=== PATIENT | male | born 1975 | race Caucasian/White ===

== ENCOUNTER 2016-05-29 11:51 | Emergency (ER) | payer OTHER, MEDICARE ==
[~2016-05-29] VITALS: Ht 172.7 cm; Wt 122.0 kg
[~2016-05-29 11:51] MED LIST: ATEN-104 PO; BUPR-197 PO; CLIN1CAP5 PO; HYDR-2768 PO; HYDR-3533 PO; LAMI200T PO; LITH300 PO; PROT40TA PO
[2016-05-29 12:01] VITALS: BP 140/92; PULSE 81; RESP 18; TEMP 97.9; O2SAT 100
--- NOTE | 2016-05-29 12:10 | PD ---
HPI Chief Complaint: Chest Pain Time Seen by Provider: 12:05 Travel History International Travel<30 days: No Contact w/Intl Traveler<30days: No History of Present Illness HPI This patient complains of a sharp stabbing pleuritic chest pain in the right lower chest. Duration is 90 minutes. Severity is moderate. Clearly reproducible with a deep breath. No cough or fever. No alleviating factors. He is not a smoker. 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) Endocrine: No GERD: Yes Genitourinary: No Hypertension: Yes Immune Disorder: No Musculoskeletal: No Neurologic: No Psychiatric: Yes (BIPOLAR depressive) Reproductive: No Respiratory: No Immunizations Current: Yes Shingles: Yes Past Surgical History Abdominal Surgery: No AICD: No Arteriovenous Shunt: No Cardiac Surgery: No Ear Surgery: Yes (MULTIPLE EAR SURGERIES CHILD) Endocrine Surgery: No Eye Surgery: No Genitourinary Surgery: No Gynecologic Surgery: No Insulin Pump: No Joint Replacement: No Neurologic Surgery: No Oral Surgery: Yes (TEETH EXTRACTIONS) Pacemaker: No Thoracic Surgery: No Tonsillectomy: Yes Tympanostomy Tube: Yes (CHILDHOOD) Other Surgery: Yes (VASECTOMY 2009) Social History Alcohol Use: Yes (RARE) Tobacco Use: Yes (chew) Substance Use: No Allergies-Medications (Allergen,Severity, Reaction): Coded Allergies: Sulfa (Verified Allergy, Mild, 05/29/16) Reported Meds & Prescriptions Reported Meds & Active Scripts Active Reported Latuda (Lurasidone) 20 Mg Tab 20 Mg PO DAILY Bupropion HCl 100 Mg Tab 100 Mg PO HS Ranitidine (Ranitidine HCl) 150 Mg Tab 150 Mg PO HS Hydrochlorothiazide 25 Mg Tab 25 Mg PO DAILY Atenolol 100 Mg Tab 100 Mg PO DAILY [place] Carbonate ER ([place] Carbonate) 450 Mg Tab 1,350 Mg PO DAILY Metformin (Metformin HCl) 850 Mg Tab 850 Mg PO DAILY With a meal Review of Systems General / Constitutional: No: Fever Eyes: No: Visual changes HENT: No: Headaches Cardiovascular: Positive: Chest Pain or Discomfort Respiratory: No: Shortness of Breath Gastrointestinal: No: Abdominal Pain Genitourinary: No: Dysuria Musculoskeletal: No: Pain Skin: No Rash Neurologic: No: Weakness Psychiatric: No: Depression Endocrine: No: Polydipsia Hematologic/Lymphatic: No: Easy Bruising Physical Exam Narrative GENERAL: Well-nourished, well-developed patient with pleuritic pain . SKIN: Warm and dry. HEAD: Atraumatic. Normocephalic. EYES: Pupils equal and round. No scleral icterus. No injection or drainage. ENT: No nasal bleeding or discharge. Mucous membranes pink and moist. NECK: Trachea midline. No JVD. CARDIOVASCULAR: Regular rate and rhythm. No murmur appreciated. RESPIRATORY: No accessory muscle use. Clear to auscultation. Breath sounds equal bilaterally. GASTROINTESTINAL: Abdomen soft, non-tender, nondistended. Hepatic and splenic margins not palpable. MUSCULOSKELETAL: No obvious deformities. No clubbing. No cyanosis. No edema. NEUROLOGICAL: Awake and alert. No obvious cranial nerve deficits. Motor grossly within normal limits. Normal speech. PSYCHIATRIC: Appropriate mood and affect; insight and judgment normal. Data Data Last Documented VS Vital Signs Date Time Temp Pulse Resp B/P Pulse Ox O2 Delivery O2 Flow Rate FiO2 05/29/16 14:00 78 18 117/77 97 Room Air 05/29/16 12:01 97.9 Orders Chest, Single Ap (05/29/16 ) Iv Access Insert/Monitor (05/29/16 12:05) Complete Blood Count With Diff (05/29/16 12:05) Basic Metabolic Panel (Bmp) (05/29/16 12:05) Prothrombin Time / Inr (Pt) (05/29/16 12:05) Act Partial Throm Time (Ptt) (05/29/16 12:05) D-Dimer (05/29/16 12:05) Electrocardiogram (05/29/16 ) Labs Laboratory Tests Test 05/29/16 12:20 White Blood Count 14.3 TH/MM3 Red Blood Count 5.14 MIL/MM3 Hemoglobin 13.9 GM/DL Hematocrit 41.2 % Mean Corpuscular Volume 80.3 FL Mean Corpuscular Hemoglobin 27.1 PG Mean Corpuscular Hemoglobin 33.8 % Concent Red Cell Distribution Width 13.3 % Platelet Count 306 TH/MM3 Mean Platelet Volume 7.8 FL Neutrophils (%) (Auto) 74.6 % Lymphocytes (%) (Auto) 17.4 % Monocytes (%) (Auto) 4.7 % Eosinophils (%) (Auto) 2.9 % Basophils (%) (Auto) 0.4 % Neutrophils # (Auto) 10.6 TH/MM3 Lymphocytes # (Auto) 2.5 TH/MM3 Monocytes # (Auto) 0.7 TH/MM3 Eosinophils # (Auto) 0.4 TH/MM3 Basophils # (Auto) 0.1 TH/MM3 CBC Comment DIFF FINAL Differential Comment Prothrombin Time 11.0 SEC Prothromb Time International 1.0 RATIO Ratio Activated Partial 28.3 SEC Thromboplast Time D-Dimer Quantitative (PE/DVT) 0.20 MG/L FEU Sodium Level 141 MEQ/L Potassium Level 3.7 MEQ/L Chloride Level 103 MEQ/L Carbon Dioxide Level 29.6 MEQ/L Anion Gap 8 MEQ/L Blood Urea Nitrogen 8 MG/DL Creatinine 0.78 MG/DL Estimat Glomerular Filtration 111 ML/MIN Rate Random Glucose 110 MG/DL Calcium Level 8.8 MG/DL MDM Medical Decision Making Medical Screen Exam Complete: Yes Emergency Medical Condition: Yes Medical Record Reviewed: Yes Differential Diagnosis PE, pneumothorax, pleurisy Narrative Course I have reviewed the patient's electronic medical record. I reviewed his EKG which shows sinus rhythm with no ST elevation or ectopy I reviewed his chest x-ray which is normal CBC is normal Metabolic profile is normal Coagulation studies are normal D-dimer is 0.20, ruling out PE in this low risk patient On reassessment he looks clinically stable for outpatient follow-up. May have some type of pleurisy. Workup here is negative Diagnosis Primary Impression: Pleuritic chest pain Additional Instructions: The patient was advised to follow up with their physician and return if they worsen. Start 600 mg Advil 3 times a day Med/Other Pt SpecificInfo: Other Disposition: 01 DISCHARGE HOME Condition: Stable Benson Sawyer MD May 29, 2016 12:10
[2016-05-29] MEDS ORDERED: HYDR25TA5 PO (12:14)
[2016-05-29] MEDS ORDERED: ATEN100T PO (12:14)
[2016-05-29] MEDS ORDERED: LITH450T PO (12:14)
[2016-05-29] MEDS ORDERED: BUPR100T4 PO (12:14)
[2016-05-29] MEDS ORDERED: RANI150T PO (12:14)
[2016-05-29] MEDS ORDERED: LURA20TA PO (12:14)
[2016-05-29] MEDS ORDERED: METF850T PO (12:14)
[2016-05-29 12:34] LABS: AUTOMATED NEUTROPHIL # 10.6 TH/MM3 (1.8-7.7); BASOPHIL # 0.1 TH/MM3 (0-0.2); BASOPHIL % 0.4 % (0.0-2.0); EOSINOPHIL # 0.4 TH/MM3 (0-0.4); EOSINOPHIL % 2.9 % (0.0-4.0); HEMATOCRIT 41.2 % (39.0-51.0); HEMO FLAGS DIFF FINAL; LYMPH % 17.4 % (9.0-44.0); LYMPHOCYTE # 2.5 TH/MM3 (1.0-4.8); MEAN CELL VOLUME 80.3 FL (80.0-100.0); MEAN CORPUSCULAR HEMOGLOBIN 27.1 PG (27.0-34.0); MEAN CORPUSCULAR HGB CONC 33.8 % (32.0-36.0); MONO % 4.7 % (0.0-8.0); NEUT % 74.6 % (16.0-70.0); PLATELET COUNT 306 TH/MM3 (150-450); RED BLOOD COUNT 5.14 MIL/MM3 (4.50-5.90); RED CELL DISTRIBUTION WIDTH 13.3 % (11.6-17.2); WHITE BLOOD COUNT 14.3 TH/MM3 (4.0-11.0)
[2016-05-29 12:43] LABS: POTASSIUM 3.7 MEQ/L (3.5-5.1)
[2016-05-29 12:46] LABS: BICARBONATE 29.6 MEQ/L (21.0-32.0)
[2016-05-29 12:49] LABS: APTT (PATIENT) 28.3 SEC (24.3-30.1)
[2016-05-29 12:57] VITALS: BP 140/77; PULSE 78; RESP 18; O2SAT 98
--- NOTE | 2016-05-29 13:05 | RADHPO ---
EXAM DATE/TIME: 05/29/2016 12:20 [facility] COMPARISON: No previous studies available for comparison. INDICATIONS : Right side chest pain. MEDICAL HISTORY : Hypertension. SURGICAL HISTORY : None. ENCOUNTER: Initial ACUITY: 1 day PAIN SCORE: 5/10 LOCATION: Right chest FINDINGS: A single view of the chest demonstrates the lungs to be symmetrically aerated without evidence of mas s, infiltrate or effusion. The cardiomediastinal contours are unremarkable. Osseous structures are intact. CONCLUSION: No acute disease. Saroj Garcia MD FACR on May 29, 2016 at 13:04 Board Certified Radiologist. This report was verified electronically.
[2016-05-29 14:00] VITALS: BP 117/77; PULSE 78; RESP 18; O2SAT 97
--- NOTE | 2016-06-05 14:54 | EKG ---
Date Performed: 05/29/2016 Time Performed: 12:02:22 PTAGE: 40 years EKG: Sinus rhythm . Poor R wave progression - probable normal variant Inferior T wave changes are nonspecific [place] e ECG PREVIOUS TRACING : 02/27/2015 13.28 DOCTOR: Avtar Sarmiento Interpretating Date/Time 06/05/2016 14:53:36
== END 2016-05-29 14:48 | disposition home or self-care (01) ==
LOC: PHED 11:51
DX: R07.81 Pleurodynia (principal); R07.89 Other chest pain; I10 Essential (primary) hypertension; F17.220 Nicotine dependence, chewing tobacco, uncomplicated; R94.31 Abnormal electrocardiogram [ECG] [EKG]; E11.9 Type 2 diabetes mellitus without complications; Z79.84 Long term (current) use of oral hypoglycemic drugs
CPT/HCPCS: 71010; 80048; 85025; 85379; 85610; 85730; 93005

== ENCOUNTER 2016-09-04 21:50 | Emergency (ER) | payer MEDICARE, OTHER ==
[~2016-09-04] VITALS: Ht 172.7 cm; Wt 109.0 kg
[~2016-09-04 21:50] MED LIST changes: -ATEN-104 PO; +ATEN100T PO; -BUPR-197 PO; +BUPR100T4 PO; -CLIN1CAP5 PO; -HYDR-2768 PO; -HYDR-3533 PO; +HYDR25TA5 PO; -LAMI200T PO; -LITH300 PO; +LITH450T PO; +LURA20TA PO; +METF850T PO; -PROT40TA PO; +RANI150T PO
[2016-09-04 21:54] VITALS: BP 181/119; PULSE 113; RESP 28; TEMP 98.2; O2SAT 98
--- NOTE | 2016-09-04 22:27 | PD ---
HPI Chief Complaint: Diabetic Time Seen by Provider: 22:18 Travel History International Travel<30 days: No Contact w/Intl Traveler<30days: No Traveled to known affect area: No History of Present Illness HPI 40-year-old male presents to the emergency department by private transportation for complaint of elevated blood sugar. Patient is diabetic. Patient also has history of hypertension. Patient states he ran out of his atenolol 2 days ago and was hoping that he can hold out with his other medications until he can get into see his primary to have a refill of all of his medications. Patient noted this evening that his blood pressure is remaining elevated. Patient presents now due to elevation of his blood pressure. Patient's had no chest pain no palpitations has felt diaphoretic no nausea no vomiting no abdominal pain. Patient was identified in triage to have a rapid heart rate and to be mildly hypertensive. Patient does not report headache visual disturbance dizziness upper or lower extremity numbness tingling or weakness or ataxia of gait also no report of chest pain referred neck jaw back shoulder arm pain or abdominal pain. No report of coffee-ground emesis or hematemesis no report of diarrhea or constipation. No recent febrile illness. Pain 0/10 in intensity. PFSH Past Medical History Narrative Medical Depression, bipolar, hypertension, diabetes, tonsillectomy, vasectomy, dental surgery; no tobacco use, positive alcohol use; nursing notes reviewed Blood Disorders: No Bipolar Disorder: Yes Anxiety: No Depression: Yes Cancer: No Cardiovascular Problems: Yes Chest Pain: Yes (PAST HISTORY OF CHEST PAIN) Diabetes: Yes Patient Takes Glucophage: Yes Diminished Hearing: Yes (DEAF IN RIGHT EAR) Endocrine: No GERD: Yes Genitourinary: No Hypertension: Yes Immune Disorder: No Musculoskeletal: No Neurologic: No Psychiatric: Yes (BIPOLAR depressive) Reproductive: No Respiratory: No Immunizations Current: Yes Shingles: Yes (PAST) Tetanus Vaccination: Unknown Influenza Vaccination: No Past Surgical History Abdominal Surgery: No AICD: No Arteriovenous Shunt: No Cardiac Surgery: No Ear Surgery: Yes (MULTIPLE EAR SURGERIES CHILD) Endocrine Surgery: No Eye Surgery: No Gynecologic Surgery: No Insulin Pump: No Joint Replacement: No Neurologic Surgery: No Oral Surgery: Yes (TEETH EXTRACTIONS) Pacemaker: No Thoracic Surgery: No Tonsillectomy: Yes Tympanostomy Tube: Yes (CHILDHOOD) Other Surgery: Yes (VASECTOMY 2009) Social History Alcohol Use: Yes (RARE) Tobacco Use: No (chew QUIT 1 YEAR AGO) Substance Use: No Allergies-Medications (Allergen,Severity, Reaction): Coded Allergies: Sulfa (Verified Allergy, Mild, 09/04/16) Reported Meds & Prescriptions Reported Meds & Active Scripts Active Hydrochlorothiazide 25 Mg Tab 25 Mg PO DAILY Atenolol 100 Mg Tab 100 Mg PO DAILY Reported Latuda (Lurasidone) 20 Mg Tab 20 Mg PO DAILY Bupropion HCl 100 Mg Tab 100 Mg PO HS Ranitidine (Ranitidine HCl) 150 Mg Tab 150 Mg PO HS Hydrochlorothiazide 25 Mg Tab 25 Mg PO DAILY Atenolol 100 Mg Tab 100 Mg PO DAILY [place] Carbonate ER ([place] Carbonate) 450 Mg Tab 1,350 Mg PO DAILY Metformin (Metformin HCl) 850 Mg Tab 850 Mg PO DAILY With a meal Review of Systems Except as stated in HPI: all other systems reviewed are Neg General / Constitutional: No: Fever, Chills HENT: No: Congestion Cardiovascular: Positive: Palpitations, Diaphoresis, No: Chest Pain or Discomfort Respiratory: No: Cough, Shortness of Breath Gastrointestinal: No: Nausea, Vomiting, Diarrhea, Abdominal Pain Genitourinary: No: Urgency, Frequency, Dysuria Musculoskeletal: No: Myalgias, Arthralgias Skin: No Rash Neurologic: No: Weakness Psychiatric: No: Anxiety Hematologic/Lymphatic: No: Lymph Node Enlargement Physical Exam Narrative GENERAL: Well-developed well-nourished male in no acute distress no respiratory distress; GCS 15 SKIN: Warm and dry. HEAD: Normocephalic. EYES: No scleral icterus. No injection or drainage. NECK: Supple, trachea midline. No JVD or lymphadenopathy. CARDIOVASCULAR: Increased Regular rate and rhythm without murmurs, gallops, or rubs. RESPIRATORY: Breath sounds equal bilaterally. No accessory muscle use. GASTROINTESTINAL: Abdomen soft, non-tender, nondistended. MUSCULOSKELETAL: No cyanosis, or edema. BACK: Nontender without obvious deformity. No CVA tenderness. Data Data Last Documented VS Vital Signs Date Time Temp Pulse Resp B/P Pulse Ox O2 Delivery O2 Flow Rate FiO2 09/05/16 02:55 98.5 95 24 155/102 98 09/05/16 01:41 Room Air Orders Electrocardiogram (09/04/16 22:18) Complete Blood Count With Diff (09/04/16 22:18) Comprehensive Metabolic Panel (09/04/16 22:18) Magnesium (Mg) (09/04/16 22:18) Beta Hydroxybutyrate (Acetone) (09/04/16 22:18) Urinalysis - C+S If Indicated (09/04/16 22:18) Chest, Single Ap (09/04/16 22:18) Blood Glucose (09/04/16 22:18) Blood Glucose (09/04/16 22:48) Ecg Monitoring (09/04/16 22:18) Iv Access Insert/Monitor (09/04/16 22:18) Oximetry (09/04/16 22:18) NPO (09/04/16 22:18) Sodium Chloride 0.9% Flush (Ns Flush) (09/04/16 22:30) Troponin I (09/04/16 22:18) Lipase (09/04/16 22:18) Sodium Chlor 0.9% 1000 Ml Inj (Ns 1000 M (09/04/16 22:30) Insulin Human Regular Inj (Novolin R Inj (09/04/16 22:30) [place] (Li) (09/04/16 22:27) Labetalol Inj (Trandate Inj) (09/05/16 00:30) Drug Screen, Random Urine (09/05/16 00:19) Clonidine (Catapres) (09/05/16 01:45) Labetalol Inj (Trandate Inj) (09/05/16 02:30) Labs Laboratory Tests Test 09/04/16 09/04/16 09/05/16 22:45 23:28 00:00 White Blood Count 13.4 TH/MM3 Red Blood Count 5.14 MIL/MM3 Hemoglobin 14.2 GM/DL Hematocrit 41.8 % Mean Corpuscular Volume 81.3 FL Mean Corpuscular Hemoglobin 27.5 PG Mean Corpuscular Hemoglobin 33.8 % Concent Red Cell Distribution Width 13.7 % Platelet Count 252 TH/MM3 Mean Platelet Volume 8.1 FL Neutrophils (%) (Auto) 71.3 % Lymphocytes (%) (Auto) 20.2 % Monocytes (%) (Auto) 6.3 % Eosinophils (%) (Auto) 2.0 % Basophils (%) (Auto) 0.2 % Neutrophils # (Auto) 9.6 TH/MM3 Lymphocytes # (Auto) 2.7 TH/MM3 Monocytes # (Auto) 0.8 TH/MM3 Eosinophils # (Auto) 0.3 TH/MM3 Basophils # (Auto) 0.0 TH/MM3 CBC Comment DIFF FINAL Differential Comment Sodium Level 138 MEQ/L Potassium Level 3.5 MEQ/L Chloride Level 100 MEQ/L Carbon Dioxide Level 27.3 MEQ/L Anion Gap 11 MEQ/L Blood Urea Nitrogen 8 MG/DL Creatinine 0.89 MG/DL Estimat Glomerular Filtration 95 ML/MIN Rate Random Glucose 356 MG/DL Calcium Level 8.9 MG/DL Magnesium Level 2.3 MG/DL Total Bilirubin 0.3 MG/DL Aspartate Amino Transf 32 U/L (AST/SGOT) Alanine Aminotransferase 59 U/L (ALT/SGPT) Alkaline Phosphatase 206 U/L Troponin I LESS THAN 0.02 NG/ML Total Protein 7.1 GM/DL Albumin 3.6 GM/DL Lipase 130 U/L B-Hydroxybutyrate 0.11 MMOL/L [place] Level 0.4 MEQ/L Urine Color YELLOW Urine Turbidity CLEAR Urine pH 5.5 Urine Specific [place] 1.032 Urine Protein NEG mg/dL Urine Glucose (UA) 1000 OR GREATER mg/dL Urine Ketones NEG mg/dL Urine Occult Blood NEG Urine Nitrite NEG Urine Bilirubin NEG Urine Leukocyte Esterase NEG Urine WBC 0-2 /hpf Urine Squamous Epithelial 0-5 /hpf Cells Microscopic Urinalysis Comment CULT NOT INDICATED Urine Opiates Screen NEG Urine Barbiturates Screen NEG Urine Amphetamines Screen NEG Urine Benzodiazepines Screen NEG Urine Cocaine Screen NEG Urine Cannabinoids Screen NEG MDM Medical Decision Making Medical Screen Exam Complete: Yes Emergency Medical Condition: Yes Medical Record Reviewed: Yes Interpretation(s) [place]: 0.4, not elevated Last Impressions Chest X-Ray 09/04/162217 Signed Impressions: Service Date/Time: Sunday, September 04, 2016 22:39 - CONCLUSION: No evidence of acute cardiopulmonary disease. Ivan Kwok MD CBC & BMP Diagram 09/04/16 22:45 Vital Signs Date Time Temp Pulse Resp B/P Pulse Ox O2 Delivery O2 Flow Rate FiO2 09/05/16 00:30 113 20 199/106 96 09/04/16 23:24 113 28 202/105 98 Room Air 09/04/16 23:06 97 Room Air 09/04/16 22:17 97 Room Air 09/04/16 21:54 98.2 113 28 181/119 98 Beta hydroxybutyric acid: 0.11, not elevated Urine drug screen: Negative Urinalysis: Positive glucosuria otherwise negative Troponin I: Less than 0.02, not elevated Differential Diagnosis Hyperglycemia, DKA, uncontrolled hypertension, dehydration, electrolyte disturbance Narrative Course Patient placed on rn cardiac rehab IV access obtained EKG performed sinus tachycardia rate [address] elevation or injury pattern nonspecific T- wave changes; IV access obtained and patient administered IV fluids along with insulin for blood glucose of 411 Lab specimens collected and sent for resulting Patient with noted ongoing hypertension and tachycardia; patient has been out of his atenolol for 2 days. 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 Labetalol 20 mg IV ordered to be administered as 10 mg IV and then after assessment of blood pressure and heart rate additional 10 mg IV. Patient received 10 mg of labetalol with good blood pressure and heart rate response second dose of 10 mg labetalol IV not administered. Patient has prescriptions for refill of his atenolol and HCTZ. Patient's blood sugar has responded well to insulin administration and blood pressure is controlled after clonidine and labetalol. Patient is stable for outpatient management. Patient encouraged to follow closely with his primary care provider and reports yard he has appointment for follow-up tomorrow. Diagnosis Primary Impression: Hyperglycemia due to type 2 diabetes mellitus Qualified Code: E11.65 - Type 2 diabetes mellitus with hyperglycemia, without long-term current use of insulin Additional Impressions: HTN (hypertension) Qualified Code: I10 - Essential hypertension Medication refill Referrals: Primary Care Physician 1 day Patient Instructions: General Instructions Additional Instructions: Take medications as prescribed Follow-up with your primary care provider call office in a.m. Return to the emergency department for any concerns or change in condition Follow diabetic diet closely; monitor blood sugars Med/Other Pt SpecificInfo: Prescription(s) given Scripts Hydrochlorothiazide 25 Mg Tab25 Mg PO DAILY #30 TAB Ref 0 Prov:Camilla Ordonez MD 09/05/16 Atenolol 100 Mg [id number] Mg PO DAILY #30 TAB Ref 0 Prov:Camilla Ordonez MD 09/05/16 Disposition: 01 DISCHARGE HOME Condition: Stable Camilla Ordonez MD Sep 04, 2016 22:27
[2016-09-04] MEDS ORDERED: SODIUM CHLORIDE 0.9% FLUSH 10 ML FLUSH IVF PRN (22:30)
[2016-09-04] MEDS ORDERED: SODIUM CHLOR 0.9% 1000 ML INJ 1,000 ML IV ONE (22:30)
[2016-09-04] MEDS ORDERED: INSULIN HUMAN REGULAR 1,000 UNITS/10 ML VIAL IV PUSH ONE (22:30)
--- NOTE | 2016-09-04 22:49 | RADHPO ---
EXAM DATE/TIME: 09/04/2016 22:39 [facility] COMPARISON: CHEST SINGLE AP, May 29, 2016, 12:20. INDICATIONS : Chest pain. MEDICAL HISTORY : Hypertension. Diabetes. SURGICAL HISTORY : None. ENCOUNTER: Initial ACUITY: 1 day PAIN SCORE: 3/10 LOCATION: Bilateral chest FINDINGS: A single view of the chest demonstrates the lungs to be symmetrically aerated without evidence of mas s, infiltrate or effusion. The cardiomediastinal contours are unremarkable. Osseous structures are intact. CONCLUSION: No evidence of acute cardiopulmonary disease. Ivan Kwok MD on September 04, 2016 at 22:47 Board Certified Radiologist. This report was verified electronically.
[2016-09-04 23:06] VITALS: O2SAT 97
[2016-09-04 23:09] LABS: AUTOMATED NEUTROPHIL # 9.6 TH/MM3 (1.8-7.7); BASOPHIL % 0.2 % (0.0-2.0); EOSINOPHIL # 0.3 TH/MM3 (0-0.4); HEMATOCRIT 41.8 % (39.0-51.0); HEMO FLAGS DIFF FINAL; LYMPH % 20.2 % (9.0-44.0); LYMPHOCYTE # 2.7 TH/MM3 (1.0-4.8); MEAN CELL VOLUME 81.3 FL (80.0-100.0); MEAN CORPUSCULAR HEMOGLOBIN 27.5 PG (27.0-34.0); MEAN CORPUSCULAR HGB CONC 33.8 % (32.0-36.0); MONO % 6.3 % (0.0-8.0); NEUT % 71.3 % (16.0-70.0); PLATELET COUNT 252 TH/MM3 (150-450); RED BLOOD COUNT 5.14 MIL/MM3 (4.50-5.90); RED CELL DISTRIBUTION WIDTH 13.7 % (11.6-17.2); WHITE BLOOD COUNT 13.4 TH/MM3 (4.0-11.0)
[2016-09-04 23:19] LABS: CHLORIDE 100 MEQ/L (98-107); POTASSIUM 3.5 MEQ/L (3.5-5.1); SODIUM (NA) 138 MEQ/L (136-145)
[2016-09-04 23:24] VITALS: BP 202/105; PULSE 113; RESP 28; O2SAT 98
[2016-09-04 23:25] LABS: ANION GAP 11 MEQ/L (5-15); BICARBONATE 27.3 MEQ/L (21.0-32.0); BLOOD UREA NITROGEN 8 MG/DL (7-18); MAGNESIUM 2.3 MG/DL (1.5-2.5)
[2016-09-04 23:27] LABS: ALT (GPT) 59 U/L (12-78); AST (GOT) 32 U/L (15-37); GLOMERULAR FILTRATION RATE 95 ML/MIN (>89)
[2016-09-04 23:29] LABS: BETA-HYDROXYBUTYRATE 0.11 MMOL/L (0.00-0.39); TOTAL BILIRUBIN ADULT 0.3 MG/DL (0.2-1.0)
[2016-09-04 23:30] LABS: ALKALINE PHOSPHATASE 206 U/L (45-117)
[2016-09-04 23:39] LABS: BLOOD, URINE NEG (NEG); KETONE, URINE NEG (NEG); NITRITE,URINE NEG (NEG); PH, URINE 5.5 (5.0-8.5)
[2016-09-04 23:45] LABS: GLUCOSE,URINE 1000 OR GREATER mg/dL (NEG)
[2016-09-04 23:49] LABS: URINE COLOR YELLOW (YELLW/STRAW)
[2016-09-04 23:51] LABS: SQUAMOUS EPITHELIAL CELL URINE 0-5 /hpf (0-5); WBC, URINE 0-2 /hpf (0-5)
[2016-09-04 23:52] LABS: COMMENT (UR) CULT NOT INDICATED; CULTURE IF INDICATED CULT NOT INDICATED
[2016-09-05 00:30] VITALS: BP 199/106; PULSE 113; RESP 20; O2SAT 96
[2016-09-05] MEDS ORDERED: LABETALOL HCL 100 MG/20 ML VIAL IV PUSH ONE ×2 (00:30→02:30)
[2016-09-05 00:38] LABS: AMPHETAMINE, URINE NEG (NEG); BARBITURATES, URINE NEG (NEG); COCAINE, URINE NEG (NEG)
[2016-09-05] MEDS ORDERED: ATEN100T PO (01:35)
[2016-09-05] MEDS ORDERED: HYDR25TA5 PO (01:35)
[2016-09-05 01:41] VITALS: BP 171/115; PULSE 106; RESP 26; O2SAT 97
[2016-09-05] MEDS ORDERED: cloNIDine HCL 0.1 MG TAB PO ONE (01:45)
[2016-09-05 02:55] VITALS: BP 155/102; TEMP 98.5
--- NOTE | 2016-09-05 21:57 | EKG ---
Date Performed: 09/04/2016 Time Performed: 22:14:46 PTAGE: 40 years EKG: Sinus tachycardia. Inferior T wave changes are nonspecific Since previous tracing, no signi ficant change noted Borderline ECG PREVIOUS TRACING : 05/29/2016 12.02 DOCTOR: Micah Curtis Interpretating Date/Time 09/05/2016 21:55:27
== END 2016-09-05 03:29 | disposition home or self-care (01) ==
LOC: PHED 21:50
DX: E11.65 Type 2 diabetes mellitus with hyperglycemia (principal); I10 Essential (primary) hypertension; R00.0 Tachycardia, unspecified; Z79.899 Other long term (current) drug therapy; Z87.891 Personal history of nicotine dependence
CPT/HCPCS: 71010; 80053; 80178; 80307; 81001; 82010; 83690; 83735; 84484; 85025; 93005; 96361; 96374; 96375; 96376; 99285; J1815; J7030

== ENCOUNTER → 2017-01-25 | Outpatient (CLI) | payer OTHER ==
--- NOTE | 2017-01-25 14:52 | EKG ---
Date Performed: 01/25/2017 Time Performed: 08:54:38 PTAGE: 41 years EKG: Sinus rhythm MINIMAL VOLTAGE CRITERIA FOR LVH, CONSIDER NORMAL VARIANT NONSPECIFIC T-WAVE ABNORMALITY Compared to previous tracing there has been some variation in the nonspecific T wave changes and resolution of t he sinus tachycardia but no other significant serial change. BORDERLINE ECG PREVIOUS TRACING : 09/04/2016 22.14 DOCTOR: Marla Forst Interpretating Date/Time 01/25/2017 14:47:26
== END ==
LOC: HCAV 08:40
PROVIDERS: ATTEND Otolaryngology
DX: Z01.818 Encounter for other preprocedural examination (principal); R94.31 Abnormal electrocardiogram [ECG] [EKG]
CPT/HCPCS: 93005

== ENCOUNTER 2017-03-07 23:18 | Emergency (ER) | payer OTHER ==
[~2017-03-07] VITALS: Ht 170.2 cm; Wt 106.0 kg
[2017-03-07 23:22] VITALS: BP 165/86; PULSE 84; RESP 24; TEMP 98.1; O2SAT 98
[2017-03-07] MEDS ORDERED: OMEP20CA2 (23:56)
[2017-03-07] MEDS ORDERED: GLUC1000 PO (23:56)
[2017-03-07] MEDS ORDERED: LISI10TA3 PO (23:56)
[2017-03-07 23:57] VITALS: BP 165/86; PULSE 84; RESP 24; TEMP 98.1; O2SAT 98
[2017-03-08] MEDS ORDERED: INSULIN HUMAN REGULAR 1,000 UNITS/10 ML VIAL IV PUSH ONE (00:30)
--- NOTE | 2017-03-08 00:34 | PD ---
HPI Chief Complaint: Diabetic Time Seen by Provider: 00:29 Travel History International Travel<30 days: No Contact w/Intl Traveler<30days: No Traveled to known affect area: No History of Present Illness HPI The patient is a 41-year-old female that comes in because his blood sugar is elevated. He states he takes his medications correctly, metformin 1000 mg twice daily and Latuda 20 mg once daily. He is followed by Dr. Lara. He states he takes his lithium correctly. He denies any chest pain, fever, shortness of breath, nausea, vomiting or diarrhea. 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) Endocrine: No GERD: Yes Genitourinary: No Hypertension: Yes Immune Disorder: No Musculoskeletal: No Neurologic: No Psychiatric: Yes (BIPOLAR depressive) Reproductive: No Respiratory: No Immunizations Current: Yes Shingles: Yes (PAST) Tetanus Vaccination: Unknown Influenza Vaccination: Yes Past Surgical History Abdominal Surgery: No AICD: No Arteriovenous Shunt: No Cardiac Surgery: No Ear Surgery: Yes (MULTIPLE EAR SURGERIES CHILD) Endocrine Surgery: No Eye Surgery: No Gynecologic Surgery: No Insulin Pump: No Joint Replacement: No Neurologic Surgery: No Oral Surgery: Yes (TEETH EXTRACTIONS) Pacemaker: No Thoracic Surgery: No Tonsillectomy: Yes Tympanostomy Tube: Yes (CHILDHOOD) Other Surgery: Yes (VASECTOMY 2009, DEVIATED SEPTUM REPAIR, ADENOIDS, EUSTACHAIN TUBE BALLOONIN) Social History Alcohol Use: Yes (RARE) Tobacco Use: No (chew QUIT 1 YEAR AGO) Substance Use: No Allergies-Medications (Allergen,Severity, Reaction): Coded Allergies: Sulfa (Sulfonamide Antibiotics) (Unverified Allergy, Mild, 03/07/17) Reported Meds & Prescriptions Reported Meds & Active Scripts Active Reported Lisinopril 10 Mg Tab 10 Mg PO DAILY Omeprazole 20 Mg Cap Glucophage (Metformin HCl) 1,000 Mg Tab 1,000 Mg PO BIDPC Latuda (Lurasidone) 20 Mg Tab 20 Mg PO DAILY Bupropion HCl 100 Mg Tab 100 Mg PO HS Hydrochlorothiazide 25 Mg Tab 25 Mg PO DAILY Atenolol 100 Mg Tab 100 Mg PO DAILY [place] Carbonate ER ([place] Carbonate) 450 Mg Tab 1,350 Mg PO DAILY Review of Systems Except as stated in HPI: all other systems reviewed are Neg Physical Exam Narrative GENERAL: The patient is alert, oriented 3 in no apparent distress. His vital signs show blood pressure 165/86 with respirations of 24 but otherwise normal. When I see the patient is respirations are 20. He does not smell of ketones. SKIN: Focused skin assessment warm/dry. HEAD: Atraumatic. Normocephalic. EYES: Pupils equal and round. No scleral icterus. No injection or drainage. ENT: No nasal bleeding or discharge. Mucous membranes pink and moist. NECK: Trachea midline. No JVD. CARDIOVASCULAR: Regular rate and rhythm. No murmur appreciated. RESPIRATORY: No accessory muscle use. Clear to auscultation. Breath sounds equal bilaterally. GASTROINTESTINAL: Abdomen soft, non-tender, nondistended. Hepatic and splenic margins not palpable. No guarding or rebound is present. MUSCULOSKELETAL: No obvious deformities. No clubbing. No cyanosis. No edema. NEUROLOGICAL: Awake and alert. No obvious cranial nerve deficits. Motor grossly within normal limits. Normal speech. PSYCHIATRIC: Appropriate mood and affect; insight and judgment normal. Data Data Last Documented VS Vital Signs Date Time Temp Pulse Resp B/P (MAP) Pulse Ox O2 Delivery O2 Flow Rate FiO2 03/08/17 01:22 82 20 138/87 (104) 100 Room Air 03/07/17 23:57 98.1 Orders Orders Complete Blood Count With Diff (03/08/17 00:29) Basic Metabolic Panel (Bmp) (03/08/17 00:29) Sodium Chlor 0.9% 1000 Ml Inj (Ns 1000 M (03/08/17 00:30) Insulin Human Regular Inj (Novolin R Inj (03/08/17 00:30) Labs Laboratory Tests Test 03/08/17 00:36 White Blood Count 5.7 TH/MM3 Red Blood Count 4.58 MIL/MM3 Hemoglobin 12.7 GM/DL Hematocrit 37.0 % Mean Corpuscular Volume 80.6 FL Mean Corpuscular Hemoglobin 27.7 PG Mean Corpuscular Hemoglobin Concent 34.4 % Red Cell Distribution Width 14.7 % Platelet Count 240 TH/MM3 Mean Platelet Volume 7.3 FL Neutrophils (%) (Auto) 64.5 % Lymphocytes (%) (Auto) 23.5 % Monocytes (%) (Auto) 10.0 % Eosinophils (%) (Auto) 1.7 % Basophils (%) (Auto) 0.3 % Neutrophils # (Auto) 3.7 TH/MM3 Lymphocytes # (Auto) 1.3 TH/MM3 Monocytes # (Auto) 0.6 TH/MM3 Eosinophils # (Auto) 0.1 TH/MM3 Basophils # (Auto) 0.0 TH/MM3 CBC Comment DIFF FINAL Differential Comment Blood Urea Nitrogen 4 MG/DL Creatinine 0.92 MG/DL Random Glucose 430 MG/DL Calcium Level 8.8 MG/DL Sodium Level 132 MEQ/L Potassium Level 4.2 MEQ/L Chloride Level 99 MEQ/L Carbon Dioxide Level 23.8 MEQ/L Anion Gap 9 MEQ/L Estimat Glomerular Filtration Rate 91 ML/MIN MDM Medical Decision Making Medical Screen Exam Complete: Yes Emergency Medical Condition: Yes Medical Record Reviewed: Yes Interpretation(s) The CBC shows a hemoglobin of 12.7 and hematocrit of 37.0 but is otherwise unremarkable. The basic metabolic profile shows a sodium of 132 and glucose 430 but is otherwise unremarkable. The anion gap is normal at 9. Differential Diagnosis Diabetic ketoacidosis, diabetes mellitus with noncompliance, diabetes mellitus poor control Narrative Course There is no history of the patient being noncompliant with his medications. He does not have ketoacidosis. This is simply elevated blood sugar-diabetes mellitus poor control. He was given 15 units of regular insulin IV at 00 50. At one half hour his blood sugar was 330. At one hour, 0150, the blood sugar was 274. At this time the patient will go home and call later on this morning to set up appointment with Dr. Lara. Diagnosis Primary Impression: Poorly controlled diabetes mellitus Additional Instructions: As we discussed, call later on this morning to set up an appointment with Dr. Lara. Take the results of the laboratory work to him so he can adjust your diabetes medications. Med/Other Pt SpecificInfo: No Change to Meds Disposition: 01 DISCHARGE HOME Condition: Stable Juan Antonio Prabhakar MD Mar 08, 2017 00:34
[2017-03-08 00:42] LABS: AUTOMATED NEUTROPHIL # 3.7 TH/MM3 (1.8-7.7); BASOPHIL % 0.3 % (0.0-2.0); EOSINOPHIL # 0.1 TH/MM3 (0-0.4); EOSINOPHIL % 1.7 % (0.0-4.0); HEMO FLAGS DIFF FINAL; LYMPH % 23.5 % (9.0-44.0); LYMPHOCYTE # 1.3 TH/MM3 (1.0-4.8); MEAN CELL VOLUME 80.6 FL (80.0-100.0); MEAN CORPUSCULAR HEMOGLOBIN 27.7 PG (27.0-34.0); MEAN CORPUSCULAR HGB CONC 34.4 % (32.0-36.0); NEUT % 64.5 % (16.0-70.0); PLATELET COUNT 240 TH/MM3 (150-450); RED BLOOD COUNT 4.58 MIL/MM3 (4.50-5.90); RED CELL DISTRIBUTION WIDTH 14.7 % (11.6-17.2); WHITE BLOOD COUNT 5.7 TH/MM3 (4.0-11.0)
[2017-03-08] MEDS: SODIUM CHLOR 0.9% 1000 ML INJ 1,000 ML IV SCH ×2 (00:52→01:17)
[2017-03-08 00:54] LABS: POTASSIUM 4.2 MEQ/L (3.5-5.1)
[2017-03-08 01:05] LABS: BICARBONATE 23.8 MEQ/L (21.0-32.0)
[2017-03-08 01:22] VITALS: BP 138/87; PULSE 82; RESP 20; O2SAT 100
== END 2017-03-08 02:12 | disposition home or self-care (01) ==
LOC: PHED 23:18
DX: E11.65 Type 2 diabetes mellitus with hyperglycemia (principal); I10 Essential (primary) hypertension
CPT/HCPCS: 80048; 85025; 96361; 96374; 99284; J1815; J7030